=== PATIENT | male | born 1985 | race Caucasian/White ===

== ENCOUNTER 2023-01-01 09:24 | Emergency (ER) | payer BC, OTHER ==
[~2023-01-01] VITALS: Ht 175.3 cm; Wt 95.3 kg
[2023-01-01] MEDS ORDERED: KETOROLAC TROMETHAMINE 60 MG INJ IM ONE ×2 (10:00→10:09)
[2023-01-01 10:01] LABS: *BILIRUBIN,URIN NEGATIVE (NEGATIVE); *BLOOD, URINE 3+ (NEGATIVE); *CLARITY,URINE CLEAR (CLEAR); *COLOR,URINE YELLOW (YELLOW); *KETONES,URINE 1+ (NEGATIVE); *PROTEIN,URINE 1+ (NEGATIVE); *UROBILINOGEN,URINE 0.2 E.U./dl (NORMAL); LEUKOCYTE ESTERASE ,URINE NEGATIVE (NEGATIVE); NITRITE, URINE NEGATIVE (NEGATIVE); UGLUCOSE NEGATIVE (NEGATIVE)
[2023-01-01 10:20] LABS: BACTERIA,URINE FEW /HPF (NONE SEEN); MUCUS,URINE MODERATE /LPF (0-FEW); RBC,URINE 20-50 /HPF (0-3); WBC,URINE 0-3 /HPF (0-3)
[2023-01-01 10:37] LABS: CALCIUM 9.5 mg/dL (8.5-10.1); CREATININE 1.1 mg/dL (0.6-1.3); POTASSIUM 4.1 mmol/L (3.5-5.1)
[2023-01-01] MEDS ORDERED: HYDR-3980 PO (11:51)
[2023-01-01] MEDS ORDERED: TAMS-3 PO (11:51)
[2023-01-01] MEDS ORDERED: ONDA4TAB11 PO (11:51)
[2023-01-01] MEDS ORDERED: ONDANSETRON ODT 4 MG TAB.RAPDIS ONE (12:29)
[2023-01-01] MEDS ORDERED: ONDANSETRON ODT 4 MG TAB.RAPDIS SL ONE (12:30)
[2023-01-01] MEDS ORDERED: HYDROCODONE/APAP 5-325MG TABLET ONE (12:30)
[2023-01-01] MEDS ORDERED: HYDROCODONE/APAP 10-325 MG TABLET PO ONE (12:30)
[2023-01-01 12:39] VITALS: O2SAT 98
[2023-01-01] MEDS ORDERED: OXYC-128 PO ×2 (13:48→14:03)
[2023-01-01] MEDS ORDERED: HYDR-3972 PO (13:48)
== END 2023-01-01 12:41 | disposition home or self-care (01) ==
LOC: ER 09:24
DX: N20.1 Calculus of ureter (principal); Z79.899 Other long term (current) drug therapy; Z88.1 Allergy status to other antibiotic agents
CPT/HCPCS: 99285; 74176; 80048; 81001; 36415; 96372; J1885; A4606; A4663; Q0162